=== PATIENT | female | born 1960 | race Caucasian/White ===

== ENCOUNTER 2017-12-24 12:19 | Outpatient (CLI) | payer OTHER | END 2017-12-24 12:20 | disposition home or self-care (01) | LOC: BICULT 12:19 | PROVIDERS: ATTEND Internal Medicine | DX: E89.0 Postprocedural hypothyroidism (principal); Z08 Encounter for follow-up examination after completed treatment for malignant neoplasm; Z85.850 Personal history of malignant neoplasm of thyroid | CPT/HCPCS: 36415; 76536; 84442 ==

== ENCOUNTER 2018-01-12 10:06 | Outpatient (CLI) | payer OTHER | END 2018-01-12 10:07 | disposition home or self-care (01) | LOC: BICMAMMO 10:06 | PROVIDERS: ATTEND Internal Medicine | DX: Z12.31 Encounter for screening mammogram for malignant neoplasm of breast (principal); Z85.850 Personal history of malignant neoplasm of thyroid | CPT/HCPCS: 77063; 77067 ==

== ENCOUNTER 2019-02-23 12:19 | Outpatient (CLI) | payer OTHER ==
--- NOTE | 2019-02-23 16:06 | MMO ---
Bilateral MAMMO Bilat Screen [facility]. CLINICAL HISTORY: Patient is 58 years old and is seen for screening. The patient has no family history of breast cancer. The patient has a history of thyroid cancer at age 55. The patient has a history of left Excisional Biopsy - benign - X2 and right Stereotatic Biopsy - benign. VIEWS: The views performed were: bilateral craniocaudal with tomosynthesis; bilateral mediolateral oblique with tomosynthesis; and bilateral exaggerated craniocaudal. FILMS COMPARED: The present examination has been compared to a prior imaging study performed at [facility] on 01/12/2018. MAMMOGRAM FINDINGS: The breasts are heterogeneously dense, which could obscure a lesion on mammography. Benign calcifications are noted bilaterally. There are stable post-operative changes in the left breast and biopsy clip in the right breast. There are no suspicious masses, suspicious calcifications, or new areas of architectural distortion. IMPRESSION: THERE IS NO MAMMOGRAPHIC EVIDENCE OF MALIGNANCY. A ROUTINE FOLLOW-UP MAMMOGRAM IN 1 YEAR IS RECOMMENDED. THE RESULTS OF THIS EXAM WERE SENT TO THE PATIENT. ACR BI-RADS Category 2 - Benign finding MAMMOGRAPHY NOTE: 1. A negative mammogram report should not delay a biopsy if a dominant of clinically suspicious mass is present. 2. Approximately 10% to 15% of breast cancers are not detected by mammography. 3. Adenosis and dense breasts may obscure an underlying neoplasm. Reported by: TOYIN PEERZ MD Electonically Signed: [id number]
== END 2019-02-23 12:20 | disposition home or self-care (01) ==
LOC: BICMAMMO 12:19
PROVIDERS: ATTEND Internal Medicine
DX: Z12.31 Encounter for screening mammogram for malignant neoplasm of breast (principal); Z85.850 Personal history of malignant neoplasm of thyroid
CPT/HCPCS: 77063; 77067

== ENCOUNTER 2020-02-28 08:09 | Outpatient (CLI) | payer BC ==
--- NOTE | 2020-02-28 08:53 | MMO ---
Bilateral MAMMO Bilat Screen [facility]. CLINICAL HISTORY: Patient is 59 years old and is seen for screening. The patient has no family history of breast cancer. The patient has a history of thyroid cancer at age 55. The patient has a history of left Excisional Biopsy - benign - X2 and right Stereotatic Biopsy - benign. VIEWS: The views performed were: bilateral craniocaudal with tomosynthesis and bilateral mediolateral oblique with tomosynthesis. FILMS COMPARED: The present examination has been compared to prior imaging studies performed at [facility] on 11/10/2015, 12/10/2016, 01/12/2018 and 02/23/2019. This study has been interpreted with the assistance of computer-aided detection. MAMMOGRAM FINDINGS: The breasts are heterogeneously dense, which could obscure a lesion on mammography. There are stable benign appearing calcifications seen in both breasts. There are no suspicious masses, suspicious calcifications, or new areas of architectural distortion. IMPRESSION: THERE IS NO MAMMOGRAPHIC EVIDENCE OF MALIGNANCY. A ROUTINE FOLLOW-UP MAMMOGRAM IN 1 YEAR IS RECOMMENDED. THE RESULTS OF THIS EXAM WERE SENT TO THE PATIENT. ACR BI-RADS Category 2 - Benign finding MAMMOGRAPHY NOTE: 1. A negative mammogram report should not delay a biopsy if a dominant of clinically suspicious mass is present. 2. Approximately 10% to 15% of breast cancers are not detected by mammography. 3. Adenosis and dense breasts may obscure an underlying neoplasm. Reported by: REMA WEBB MD Electonically Signed: [id number]
== END 2020-02-28 08:10 | disposition home or self-care (01) ==
LOC: BICMAMMO 08:09
PROVIDERS: ATTEND Internal Medicine
DX: Z12.31 Encounter for screening mammogram for malignant neoplasm of breast (principal); Z85.850 Personal history of malignant neoplasm of thyroid; Z91.89 Other specified personal risk factors, not elsewhere classified
CPT/HCPCS: 77063; 77067

== ENCOUNTER 2020-03-21 10:06 | Outpatient (CLI) | payer BC ==
--- NOTE | 2020-03-21 12:14 | ULT ---
THYROID ULTRASOUND: Date: 03/21/2020 INDICATION: Status post thyroidectomy from thyroid cancer in 2015. Routine surveillance. FINDINGS: No evidence of residual or recurrent thyroid tissue identified. No mass or adenopathy. IMPRESSION: No evidence of thyroid tissue. POS: [facility]
== END 2020-03-21 10:07 | disposition home or self-care (01) ==
LOC: BICULT 10:06
PROVIDERS: ATTEND Internal Medicine Endocrinology, Diabetes & Metabolism
DX: Z08 Encounter for follow-up examination after completed treatment for malignant neoplasm (principal); Z85.850 Personal history of malignant neoplasm of thyroid
CPT/HCPCS: 76536

== ENCOUNTER 2021-10-12 08:28 | Outpatient (CLI) | payer OTHER | END 2021-10-12 08:29 | disposition home or self-care (01) | LOC: BICMAMMO 08:28 | PROVIDERS: ATTEND Internal Medicine | DX: Z12.31 Encounter for screening mammogram for malignant neoplasm of breast (principal); Z91.89 Other specified personal risk factors, not elsewhere classified; Z85.850 Personal history of malignant neoplasm of thyroid | CPT/HCPCS: 77063; 77067 ==

== ENCOUNTER 2022-02-06 08:01 | Outpatient (CLI) | payer OTHER | END 2022-02-06 08:02 | disposition home or self-care (01) | LOC: BICULT 08:01 | PROVIDERS: ATTEND Internal Medicine | DX: R74.01 Elevation of levels of liver transaminase levels (principal); K76.0 Fatty (change of) liver, not elsewhere classified | CPT/HCPCS: 76705 ==

== ENCOUNTER 2023-03-14 13:29 | Outpatient (CLI) | payer OTHER | END 2023-03-14 13:30 | disposition home or self-care (01) | LOC: BICMAMMO 13:29 | PROVIDERS: ATTEND Internal Medicine | DX: Z12.31 Encounter for screening mammogram for malignant neoplasm of breast (principal); Z91.89 Other specified personal risk factors, not elsewhere classified; Z85.850 Personal history of malignant neoplasm of thyroid | CPT/HCPCS: 77063; 77067 ==

== ENCOUNTER 2024-01-26 05:55 | Day surgery (SDC) | payer BC ==
[2024-01-19 11:18] VITALS: BMI 28.7
[2024-01-26] MEDS ORDERED: CEFAZOLIN 2 GM VIAL ONE (06:53)
[2024-01-26] MEDS ORDERED: Sodium Chloride 0.9% 100 ML ONE (06:54)
[2024-01-26] MEDS ORDERED: Lidocaine 2% PF 5 ML VIAL ONE (06:59)
[2024-01-26] MEDS ORDERED: Midazolam HCl 2 mg/2 ml Vial ONE (06:59)
[2024-01-26] MEDS ORDERED: PROPOFOL 20 ML ONE (06:59)
[2024-01-26] MEDS ORDERED: Rocuronium Bromide 10 MG/ML (10ML VIAL) ONE (06:59)
[2024-01-26] MEDS ORDERED: fentaNYL PF 100 MCG/2 ML SYRINGE ONE (06:59)
[2024-01-26] MEDS ORDERED: Bupivacaine 0.25% HCL 30 ML VIAL ONE (07:05)
[2024-01-26] MEDS ORDERED: EPINEPHrine 1 MG/ML VIAL ONE (07:05)
[2024-01-26] MEDS ORDERED: MINERAL OIL/WHITE PETROLATUM 3.5 GM TUBE ONE (07:10)
[2024-01-26] MEDS ORDERED: Ondansetron PF 4 MG/2 ML Vial ONE (07:49)
[2024-01-26] MEDS ORDERED: Dexamethasone 4 mg/ml Vial ONE (07:49)
[2024-01-26] MEDS ORDERED: SUGAMMADEX SODIUM 200 MG/2 ML VIAL ONE (07:53)
[2024-01-26] MEDS ORDERED: Ketamine In 0.9 % NaCl 50 MG/5 ML SYRINGE ONE (07:54)
[2024-01-26] MEDS ORDERED: PHENYLEPHRINE-NS 100 MCG/ML 10 ML SYRINGE ONE (08:00)
[2024-01-26] MEDS ORDERED: Meperidine HCl/PF 25 MG (1 mL) VIAL ONE (09:16)
== END 2024-01-26 11:00 | disposition home or self-care (01) ==
LOC: SDC 05:55
PROVIDERS: ATTEND Surgery
PROC: 0JB70ZZ Excision of Back Subcutaneous Tissue and Fascia, Open Approach (ICD-10-PCS; principal; 2024-01-26)
PROC: 0H5 Skin and Breast, Destruction (ICD-10-PCS; principal; 2024-01-26)
DX: D17.1 Benign lipomatous neoplasm of skin and subcutaneous tissue of trunk (principal); L82.1 Other seborrheic keratosis; I10 Essential (primary) hypertension; E78.5 Hyperlipidemia, unspecified; Z90.89 Acquired absence of other organs; Z98.1 Arthrodesis status; Z90.710 Acquired absence of both cervix and uterus; Z90.13 Acquired absence of bilateral breasts and nipples; Z90.49 Acquired absence of other specified parts of digestive tract; Z98.890 Other specified postprocedural states
CPT/HCPCS: 88304; 88305; A6258; J0171; J0665; J1100; J2001; J2175; J2250; J2405; J2704; J3490

== ENCOUNTER 2024-05-27 15:16 | Outpatient (CLI) | payer BC | END 2024-05-27 15:17 | disposition home or self-care (01) | LOC: BICRAD 15:16 | PROVIDERS: ATTEND Internal Medicine | DX: M25.511 Pain in right shoulder (principal); M79.89 Other specified soft tissue disorders ==

== ENCOUNTER 2024-05-31 15:13 | Outpatient (CLI) | payer BC | END 2024-05-31 15:14 | disposition home or self-care (01) | LOC: SCSMRI 15:13 | PROVIDERS: ATTEND Internal Medicine | DX: M25.511 Pain in right shoulder (principal); S43.431A Superior glenoid labrum lesion of right shoulder, initial encounter; M19.011 Primary osteoarthritis, right shoulder; M65.221 Calcific tendinitis, right upper arm ==

== ENCOUNTER 2025-06-14 09:38 | Outpatient (CLI) | payer BC | END 2025-06-14 09:39 | disposition home or self-care (01) | LOC: BICMRI 09:38 | PROVIDERS: ATTEND Orthopaedic Surgery | DX: M75.101 Unspecified rotator cuff tear or rupture of right shoulder, not specified as traumatic (principal); M75.31 Calcific tendinitis of right shoulder ==